=== PATIENT | female | born 1955 | race Caucasian/White ===

== ENCOUNTER 2018-07-28 05:54 | Day surgery (SDC) | payer BC ==
[2018-07-28] MEDS ORDERED: VASOPRESSIN 20 U/ML VIAL IM ONE (05:55)
[2018-07-28] MEDS ORDERED: LIDOCAINE 2% MDV (20MG/ML) 20ML VIAL IV ONE (05:55)
[2018-07-28] MEDS ORDERED: DEXAMETHASONE 4 MG/ML 1ML VIAL IVP ONE (05:55)
[2018-07-28] MEDS ORDERED: 0.9 % SODIUM CHLORIDE 10ML SYR IVP ONE (05:55)
[2018-07-28] MEDS ORDERED: SEVOFLURANE 250 ML INH ONE (05:55)
[2018-07-28] MEDS ORDERED: MIDAZOLAM HCL 2MG/2ML VIAL IV ONE (05:55)
[2018-07-28] MEDS ORDERED: FENTANYL PF 100MCG/2ML VIAL IV ONE ×2 (05:55)
[2018-07-28] MEDS ORDERED: ONDANSETRON HCL IV 4 MG/2 ML VIAL IVP ONE (05:55)
[2018-07-28] MEDS ORDERED: PROPOFOL 10 MG/ML VIAL IV ONE (05:55)
[2018-07-28] MEDS ORDERED: HYDROCODONE/APAP 5/325MG TABLET PO ONE (05:55)
[2018-07-28] MEDS ORDERED: CEFAZOLIN 2 Gram 2 GM/50 ML BAG IVPB ONE (06:00)
[2018-07-28] MEDS ORDERED: ACETAMINOPHEN 1,000 MG/100 ML BTL IV ONE (06:00)
--- NOTE | 2018-07-28 20:52 | Operative Note ---
DATE OF SURGERY: 07/28/2018 PREOPERATIVE DIAGNOSES: RECTOCELE, CYSTOCELE. POSTOPERATIVE DIAGNOSES: RECTOCELE, CYSTOCELE. PROCEDURE PERFORMED: 1. CYSTOCELE REPAIR. 2. RECTOCELE REPAIR. PHYSICIAN: MONICA SAMS D.O. ANESTHESIA: GENERAL. COMPLICATIONS: NONE. ESTIMATED BLOOD LOSS: MINIMAL. PROCEDURE: The patient was prepped for surgery and brought back to the Operative Suite. She was placed under general anesthesia. She was sterilely prepped and draped in the dorsal lithotomy position. A Mendes catheter was placed. I then grabbed the anterior vaginal mucosa in the midline with two Allis '.A dilute vasopressin solution was injected. An incision was made between these two Allis'. The mucosa was dissected laterally back to the sidewall. It was then dissected anteriorly to the ureterovesical junction and then superiorly to the vaginal cuff. I then used #2-0 Vicryl to bring the fascial area together on the sides. This was done in an interrupted fashion. The excess vaginal mucosa was removed. The skin was then closed with #2-0 Vicryl in a running locking fashion. I then turned my attention to the posterior aspect. Two Allis' were used to sweet pickle maker the posterior vaginal mucosa. A dilute vasopressin solution was injected. An incision was made in the midline. The mucosa was dissected back laterally. It was then dissected to the vaginal cuff and then to the posterior fourchette. Interrupted sutures using #2-0 Vicryl were used to help reduce the bulge. The excess vaginal mucosa was closed. #2-0 Vicryl was used to close the incision with running locking suture. No bleeding was noted. The Mendes catheter was removed. The patient was then awoken from general anesthesia and brought back to the Recovery Room in satisfactory condition. The sponge and instrument count were correct. JOB NUMBER: [id number] MTDD
[2018-07-29] MEDS ORDERED: ACETAMINOPHEN 1,000 MG/100 ML BTL IV ONE (06:00)
== END 2018-07-28 09:40 | disposition home or self-care (01) ==
LOC: SUR 05:54
PROVIDERS: ATTEND Obstetrics & Gynecology
DX: N81.6 Rectocele (principal); N81.10 Cystocele, unspecified
CPT/HCPCS: J2405; J3490